=== PATIENT | female | born 1995 | race Caucasian/White ===

== ENCOUNTER 2018-11-22 10:57 | Emergency (ER) | payer MEDICAID ==
[~2018-11-22] VITALS: Ht 167.6 cm; Wt 69.4 kg
[2018-11-22 11:07] VITALS: Ht 167.6 cm; Wt 69.4 kg
[2018-11-22 11:43] VITALS: BP 100/58
== END 2018-11-22 11:43 | disposition home or self-care (01) ==
LOC: ED 10:57
DX: G51.0 Bell's palsy (principal)

== ENCOUNTER 2019-04-13 09:54 | Emergency (ER) | payer MEDICAID ==
[~2019-04-13] VITALS: Ht 154.9 cm; Wt 78.9 kg
[2019-04-13 10:08] VITALS: BP 130/56; Ht 154.9 cm; Wt 78.9 kg
== END 2019-04-13 11:20 | disposition home or self-care (01) ==
LOC: ED 09:54
DX: O26.892 Other specified pregnancy related conditions, second trimester (principal); M67.432 Ganglion, left wrist; Z3A.26 26 weeks gestation of pregnancy

== ENCOUNTER 2019-07-19 12:23 | Emergency (ER) | payer OTHER ==
[~2019-07-19] VITALS: Ht 165.1 cm; Wt 80.7 kg
[2019-07-19 12:33] VITALS: Ht 165.1 cm; Wt 80.7 kg
[2019-07-19 14:30] VITALS: BP 116/57
== END 2019-07-19 14:30 | disposition home or self-care (01) ==
LOC: ED 12:23
DX: M65.861 Other synovitis and tenosynovitis, right lower leg (principal); M65.842 Other synovitis and tenosynovitis, left hand; M65.841 Other synovitis and tenosynovitis, right hand
CPT/HCPCS: J1885

== ENCOUNTER 2019-12-15 09:32 | Emergency (ER) | payer MEDICAID ==
[~2019-12-15] VITALS: Ht 167.6 cm; Wt 83.5 kg
[2019-12-15 09:44] VITALS: Ht 167.6 cm; Wt 83.5 kg
[2019-12-15 10:42] VITALS: BP 121/70
== END 2019-12-15 10:42 | disposition home or self-care (01) ==
LOC: ED 09:32
DX: K12.1 Other forms of stomatitis (principal)

== ENCOUNTER 2019-12-31 07:09 | Emergency (ER) | payer MEDICAID ==
[2019-12-31 07:18] VITALS: BP 104/58
== END 2019-12-31 08:00 | disposition home or self-care (01) ==
LOC: ED 07:09
DX: K11.7 Disturbances of salivary secretion (principal); T50.905A Adverse effect of unspecified drugs, medicaments and biological substances, initial encounter; Y92.89 Other specified places as the place of occurrence of the external cause